=== PATIENT | female | born 1950 | race Hispanic/Latino ===

== ENCOUNTER → 2024-12-15 | Outpatient (CLI) | payer OTHER, MEDICARE ==
[2024-12-15] MEDS: REGADENOSON 0.4 MG/5 ML PF SYG IVP ONE (10:22)
== END | disposition home or self-care (01) ==
LOC: RAH 08:47
PROVIDERS: ATTEND Internal Medicine Cardiovascular Disease
DX: I25.10 Atherosclerotic heart disease of native coronary artery without angina pectoris (principal); R06.09 Other forms of dyspnea
CPT/HCPCS: 78452; 93017; J2785; A9500 ×2

== ENCOUNTER → 2025-01-18 | Outpatient (CLI) | payer OTHER ==
--- NOTE | 2025-01-19 11:41 | HMCIMG ---
EXAM: CT Cardiac calcium scoring. CLINICAL HISTORY: Screening. TECHNIQUE: Thin collimated axial CT cardiac images were obtained. A CT scan is done according to ALARA (As Low As Reasonably Achievable). CONTRAST: None. COMPARISON: None provided. FINDINGS: Calcium Score: VESSEL Number of lesions Volume mm3 Equi. Mass/mg Calcium score LM 3 29.2 - 40.7 LAD 9 532.6 - 723.0 LCX 6 251.1 - 326.0 RCA 10 309.4 - 389.5 Total 28 1122.3 - 1479.2 IMPRESSION: The total calcium score is 1479.2. 90th percentile. /[place]
== END | disposition home or self-care (01) ==
LOC: RAH 13:39 → EDUNIT# 14:00
PROVIDERS: ATTEND Internal Medicine Cardiovascular Disease
DX: Z13.6 Encounter for screening for cardiovascular disorders (principal)
CPT/HCPCS: 75571

== ENCOUNTER 2025-03-26 06:57 | Day surgery (SDC) | payer OTHER, MEDICARE ==
[2025-03-24 12:53] LABS: IMMATURE GRANULOCYTE ABSOLUTE 0.04 K/uL (0-1); NUCLEATED RED BLOOD CELLS 0.0 % (0.0-0.19); PLATELET COUNT (AUTO) 216 K/uL (130-400); RED BLOOD CELL COUNT(AUTO) 3.85 MIL/uL (4.00-5.50); RED CELL DISTRIBUTION WIDTH 13.4 % (11.0-15.5); WHITE BLOOD COUNT (AUTO) 8.4 K/uL (4.8-10.8)
[2025-03-24 13:01] LABS: APPEARANCE,URINE CLOUDY (CLEAR); GLUCOSE, URINE (UA) NEGATIVE (NEGATIVE); LEUKOCYTE ESTERASE ,URINE 500 Leu/uL (NEGATIVE); NITRATE,URINE NEGATIVE (NEGATIVE); OCCULT BLOOD,URINE NEGATIVE (NEGATIVE)
[2025-03-24 13:02] LABS: CREATININE 1.3 mg/dL (0.5-1.0); GLOMERULAR FILTR. RATE CALC 42.0 mL/min (>90); GLUCOSE,RANDOM 122.0 mg/dL (70-105); SODIUM SERUM 140.0 mmol/L (136-145); UREA NITROGEN, BLOOD 26.0 mg/dL (7-18)
[2025-03-24 13:02] LABS: ADD UA MICROSCOPIC YES
--- NOTE | 2025-03-24 13:02 | EKG ---
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
[2025-03-24 13:10] LABS: SQUAMOUS EPITHELIAL CELL,UR RARE /HPF (0-2)
[2025-03-24 13:35] LABS: INR 0.97 (0.85-1.15)
[2025-03-24 13:36] VITALS: BP 150/71; PULSE 75; RESP 17; TEMP 97.7
--- NOTE | 2025-03-24 15:25 | HMCIMG ---
EXAM: CR Chest, 1 View. CLINICAL HISTORY: PRE OP COMPARISON: None provided. FINDINGS: LUNGS: There is no mass, infiltrate, or acute pulmonary abnormality. PLEURAL SPACES: No evidence of pleural effusion or pneumothorax. MEDIASTINUM: The cardiomediastinal silhouette is within normal limits. BONES: No acute osseous abnormality. IMPRESSION: No acute cardiopulmonary pathology is evident. /[place]
--- NOTE | 2025-03-25 09:53 | NUR ---
REPORT REPORTED UA/URINE CX/BUN/CREAT TO KACY VALENCIA [employer]. RECEIVED ORDERS FOR ROCEPHIN 1GM IVP SLOW X1 PREOP.
[~2025-03-26] VITALS: Ht 149.9 cm; Wt 70.5 kg
[2025-03-26] VITALS (11 sets, daily range): BP systolic 119–158; BP diastolic 55–76; PULSE 62–74; RESP 10–22; TEMP 97.2–97.7
[~2025-03-26 06:57] MED LIST: ACET-2247 PO; ASPI-1005 PO; ATOR40TA71 PO; CALCIUM PO; FERR-72 PO; FOLI0.8T43 PO; GABA-529 PO; INSU200I4 SQ; IRON1CAP32 PO; LEVO75CA6 PO; LOSA50TA64 PO; NITR0.4T50 SL; NITR100C PO; PIOG15TA66 PO; SEMA1PEN3 SQ; VITAD50000 PO; [UNRECOGNIZED DRUG - OTHER] PO
[2025-03-26] MEDS: 0.9%NACL 1000ML 1,000 ML IV SCH (08:02)
[2025-03-26] MEDS ORDERED: MIDAZOLAM HCL 1 MG/ML 2ML VIAL ONE ×2 (08:40→09:15)
[2025-03-26] MEDS ORDERED: IOHEXOL 350 MG/ML 100ML INFUS..BTL IV ONE (08:40)
[2025-03-26] MEDS ORDERED: LIDOCAINE HCL 400MG/20ML VIAL ONE (08:40)
[2025-03-26] MEDS ORDERED: IOHEXOL-350 50ML VIAL IV ONE (08:40)
[2025-03-26] MEDS ORDERED: HEParin-NS 1,000 UNIT/500 ML 1,000 ML IV ONE (08:40)
[2025-03-26] MEDS ORDERED: NITROGLYCERIN 50MG VIAL ONE (08:54)
[2025-03-26] MEDS ORDERED: DEXTROSE 50%-WATER 50 ML DISP.SYRIN IV PRN (10:00)
[2025-03-26] MEDS ORDERED: 0.9%NACL 1000ML 1,000 ML IV SCH (10:00)
[2025-03-26] MEDS ORDERED: GLUCAGON 1MG KIT 1 MG ML IM PRN (10:00)
--- NOTE | 2025-03-26 10:31 | CCATH ---
PROCEDURES: * Left heart catheterization. * Selective right and left coronary arteriogram. * IFR of the LAD. * Conscious sedation x30 minutes. INDICATIONS: * Coronary artery disease. * Recurrent angina. * Abnormal coronary CT angiogram. COMPLICATIONS: None. TOTAL CONTRAST: Approximately 45 mL. APPROACH: Right radial approach. DESCRIPTION OF PROCEDURE: The patient was taken to the cardiac catheterization lab after appropriate operative consents were signed. She was prepped and draped in the usual fashion. After conscious sedation was administered, the right radial artery region was infiltrated with 2% Xylocaine without epinephrine. A 6-Icelandic radial slender sheath was advanced in a retrograde fashion with a modified Seldinger technique. At this point, a TIG4 catheter was advanced and placed in the left ventricular cavity. The left ventricular end-diastolic pressure measurement was obtained. Pullback revealed no aortic stenosis. Ventriculography was deferred to conserve contrast. The patient has chronic kidney disease and preserved LV systolic function by noninvasive studies. The catheter was then engaged in the ostium of the right coronary artery. This was imaged in multiplane. This was a large vessel that was somewhat tortuous. It gave us a moderately sized PDA and PLVB system. The distal RCA had a 30% stenotic lesion that was tubular. The catheter was withdrawn and engaged in the left main coronary artery. Imaging was obtained in multiple planes. The left main was a normal size vessel with no significant stenotic lesions. It bifurcated to the LAD and a circumflex. Circumflex was a large vessel that gave rise to several marginal branches and ongoing circumflex. The first obtuse marginal branch was a tiny branch. The second obtuse marginal was a large vessel that was branching. The superior and smaller branch of the branching obtuse marginal had a 30% stenotic lesion. The inferior and larger branching segment was normal. The ongoing circumflex was small but normal. The LAD was a moderately large vessel that gave us several diagonal septal perforators. The area in the mid LAD had a calcific lesion that was approximately 60% stenosis by visual assessment. The area was calcified in a tortuous segment at the level of the second diagonal. The first diagonal was a moderately large vessel that had a 60% stenotic lesion. The second diagonal was a small vessel that had 90% diffuse stenosis. Given the findings and the patient's symptoms, we elected to proceed with an IFR of the LAD. We then utilized an XB3 guide 6-Icelandic catheter, which was engaged in the ostium of the left main. An IFR wire was advanced and positioned into the LAD and two separate measurements were obtained. Both of those measurements were in the normal range at 0.92 and 0.94 respectively. Given that, we elected not to intervene in this lesion. We withdrew the IFR wire. The catheter was withdrawn over an indwelling 0.035 J-wire. Radial band was applied with hemostasis. The patient tolerated the procedure well, left the cardiac catheterization lab in stable condition. FINAL IMPRESSION: * Coronary artery disease * Preserved left ventricular systolic function with noninvasive studies * No aortic stenosis PLAN: Continue to optimize medical management. TID: [id number] RECEIPT: [id number]
--- NOTE | 2025-03-26 14:15 | NUR ---
USING BED WATTERS. PATIENT VOIDED 200CC OF CLEAR, YELLOW URINE.
--- NOTE | 2025-03-26 16:00 | NUR ---
ENSURED 0MLS OF AIR REMAINED. REMOVED VASC BAND. APPLIED CHLORA-PREP TO THE SITE. APPLIED D-STAT APPLIED STERILE D-STAT DRESSING. APPLIED STERILE 4X4 TEGADERM OVER. APPLIED COBAN TO SECURE DRESSING. REINFORCED THE IMPORTANCE OF NOT USING THE RIGHT ARM TO LIFT MORE THAN 3 POUNDS. AND REINFORCED TO NOT PUT PRESSURE ON THE RIGHT WRIST. BOTH PATIENT AND DAUGHTER-IN LAW VOICED UNDERSTANDING.
== END 2025-03-26 16:15 | disposition home or self-care (01) ==
LOC: DAH 06:57
PROVIDERS: ATTEND Internal Medicine Cardiovascular Disease
DX: I25.118 Atherosclerotic heart disease of native coronary artery with other forms of angina pectoris (principal); I25.84 Coronary atherosclerosis due to calcified coronary lesion; R06.02 Shortness of breath; R93.1 Abnormal findings on diagnostic imaging of heart and coronary circulation; E78.2 Mixed hyperlipidemia; R91.1 Solitary pulmonary nodule; I45.10 Unspecified right bundle-branch block; E03.9 Hypothyroidism, unspecified; I12.9 Hypertensive chronic kidney disease with stage 1 through stage 4 chronic kidney disease, or unspecified chronic kidney disease; E11.22 Type 2 diabetes mellitus with diabetic chronic kidney disease; N18.9 Chronic kidney disease, unspecified; Z79.82 Long term (current) use of aspirin; Z79.899 Other long term (current) drug therapy
CPT/HCPCS: 80048; 83880; 85025; 85610; 85730; 87086 ×2; 81001; 36415; 71045; 93005; 93458; 93571; 99156; 99157 ×2; 87186; 82948 ×2; C1769 ×2; A4649; C1894; C1887; Q9965; J3010; J3490 ×3; J7030; J0696; J1644 ×2; J2250 ×2; Q9967 ×2; A4215; A4335; A4222; A4221; A4663; A4216; A4606; A4223 ×3; A4554; 85347; 96360; 96361